=== PATIENT | female | born 1955 | race Caucasian/White ===

== ENCOUNTER 2017-06-22 09:02 | Emergency (ER) | payer MEDICARE, OTHER ==
[~2017-06-22] VITALS: Ht 152.4 cm; Wt 105.7 kg
[~2017-06-22 09:02] MED LIST: ARIP30TA3 PO; CLON0.5T PO; FLUO20CA36 PO; PANT40TA4 PO; VENL75CA56 PO
[2017-06-22 09:13] VITALS: BP 149/91
--- NOTE | 2017-06-22 09:15 | NUR ---
BRIGHT RED BLOOD ON TOILET SEAT (NOT ON STOOL) DURING BM X 3 DAYS. RR IS EVEN AND UNLABORED WITH NAD NOTED. SKIN IS WARM AND DRY. DR WARREN AT BS FOR EVAL.
== END 2017-06-22 10:02 | disposition home or self-care (01) ==
LOC: ER 09:05
DX: K62.5 Hemorrhage of anus and rectum (principal); K64.4 Residual hemorrhoidal skin tags; E11.9 Type 2 diabetes mellitus without complications; F43.10 Post-traumatic stress disorder, unspecified; F31.9 Bipolar disorder, unspecified; G47.30 Sleep apnea, unspecified; K21.9 Gastro-esophageal reflux disease without esophagitis; Z88.1 Allergy status to other antibiotic agents; Z60.2 Problems related to living alone
CPT/HCPCS: A4606; Z7610

== ENCOUNTER 2018-05-19 00:21 | Emergency (ER) | payer MEDICARE, MEDICAID ==
[~2018-05-19] VITALS: Ht 152.4 cm; Wt 99.8 kg
[2018-05-19 01:11] VITALS: BP 149/78
--- NOTE | 2018-05-19 01:25 | NUR ---
URINE SPECIMAN OBTAINED AND SENT TO THE LAB.
[2018-05-19 01:41] LABS: APPEARANCE,URINE CLEAR (CLEAR); BILIRUBIN,URINE NEGATIVE (NEGATIVE); BLOOD, URINE 1+ Ery/uL (NEGATIVE); COLOR,URINE YELLOW (YELLOW); KETONES,URINE NEGATIVE (NEGATIVE); LEUKOCYTE ESTERASE ,URINE NEGATIVE (NEGATIVE); NITRITE, URINE NEGATIVE (NEGATIVE); PROTEIN,URINE NEGATIVE (NEGATIVE); UGLUCOSE 3+ mg/dL (NEGATIVE); UROBILINOGEN,URINE 0.2 EU/dL (0.2)
[2018-05-19 01:57] LABS: BACTERIA,URINE Few /HPF (None Seen); RBC,URINE 0-2 /HPF (0-2); SQUAMOUS EPITHELIAL CELL,UR Few /HPF (None Seen); WBC,URINE 0-2 /HPF (0-3)
[2018-05-19] MEDS ORDERED: IBUPROFEN 600 MG TABLET PO ONE ×2 (02:07→02:30)
== END 2018-05-19 03:02 | disposition home or self-care (01) ==
LOC: ER 00:29
DX: R10.9 Unspecified abdominal pain (principal); I10 Essential (primary) hypertension; E11.9 Type 2 diabetes mellitus without complications; G47.30 Sleep apnea, unspecified; K21.9 Gastro-esophageal reflux disease without esophagitis; F31.9 Bipolar disorder, unspecified; F43.10 Post-traumatic stress disorder, unspecified; E66.9 Obesity, unspecified; Z98.51 Tubal ligation status; Z88.1 Allergy status to other antibiotic agents; Z88.2 Allergy status to sulfonamides; Z60.2 Problems related to living alone
CPT/HCPCS: 81000-TC; 87086-TC

== ENCOUNTER 2018-05-29 17:43 | Emergency (ER) | payer MEDICARE, MEDICAID ==
[~2018-05-29] VITALS: Ht 152.4 cm; Wt 102.1 kg
--- NOTE | 2018-05-29 18:19 | NUR ---
patient presented to the ER c/o painful urination. On room air, breathing evenly and unlabored. Connected to the monitor and pulse ox. Kept comfortable,, will continue to monitor.
[2018-05-29 18:32] LABS: APPEARANCE,URINE Cloudy (CLEAR); BILIRUBIN,URINE Negative (NEGATIVE); BLOOD, URINE Large Ery/uL (NEGATIVE); COLOR,URINE Brown (YELLOW); KETONES,URINE 15 (NEGATIVE); LEUKOCYTE ESTERASE ,URINE Small (NEGATIVE); NITRITE, URINE Negative (NEGATIVE); PH,URINE 5.5 (5.0-8.0); PROTEIN,URINE 100 mg/dl (NEGATIVE); UGLUCOSE 500 MG/DL mg/dL (NEGATIVE); UROBILINOGEN,URINE 0.2 EU/dL (0.2)
[2018-05-29 18:50] LABS: BACTERIA,URINE Few /HPF (None Seen); MUCUS,URINE Few /LPF (None Seen); RBC,URINE TOO NUMEROUS TO COUN /HPF (0-2); SQUAMOUS EPITHELIAL CELL,UR Few /HPF (None Seen); URINE AMORPHOUS URATE Few /HPF (None Seen)
--- NOTE | 2018-05-29 19:00 | NUR ---
Report received from Darshan GALEAS for [facility].
--- NOTE | 2018-05-29 19:14 | NUR ---
Марина perales in ED - 05/29/18 at 1914 by [email or web address] Patient discharged to home in stable condition. Written and verbal after care instructions given. Patient verbalizes understanding of instruction. Pt ambulatory with steady gait.
[2018-05-29 19:15] VITALS: BP 142/88
--- NOTE | 2018-05-29 19:15 | NUR ---
Patient discharged to home in stable condition. Written and verbal after care instructions given. Patient verbalizes understanding of instruction. Pt ambulatory with steady gait.
== END 2018-05-29 19:19 | disposition home or self-care (01) ==
LOC: ER 17:44
DX: N39.0 Urinary tract infection, site not specified (principal); E11.9 Type 2 diabetes mellitus without complications; K21.9 Gastro-esophageal reflux disease without esophagitis; F31.9 Bipolar disorder, unspecified; G47.30 Sleep apnea, unspecified; F43.10 Post-traumatic stress disorder, unspecified; Z98.890 Other specified postprocedural states; Z88.1 Allergy status to other antibiotic agents; Z88.2 Allergy status to sulfonamides; Z60.2 Problems related to living alone; Z79.899 Other long term (current) drug therapy
CPT/HCPCS: 81000-TC; 87086-TC; 87186-TC

== ENCOUNTER 2024-07-20 13:45 | Emergency (ER) | payer MEDICARE, OTHER ==
[~2024-07-20] VITALS: Ht 157.5 cm; Wt 93.0 kg
[~2024-07-20 13:45] MED LIST changes: -PANT40TA4 PO; +PANT40TA49 PO
[2024-07-20] MEDS ORDERED: IBUP-1490 PO (15:15)
[2024-07-20 15:51] VITALS: BP 146/80; TEMP 98.1; O2SAT 98
== END 2024-07-20 15:52 | disposition home or self-care (01) ==
LOC: ER 13:45
DX: M72.2 Plantar fascial fibromatosis (principal); I10 Essential (primary) hypertension; E11.9 Type 2 diabetes mellitus without complications; Z79.899 Other long term (current) drug therapy; Z88.1 Allergy status to other antibiotic agents; Z88.2 Allergy status to sulfonamides

== ENCOUNTER 2024-11-27 09:34 | Outpatient (CLI) | payer MEDICARE, OTHER ==
[~2024-11-27 09:34] MED LIST changes: +IBUP-1490 PO
== END 2024-11-27 23:59 | disposition home or self-care (01) ==
LOC: WOU 09:34
PROVIDERS: ATTEND Student in an Organized Health Care Education/Training Program
DX: M76.61 Achilles tendinitis, right leg (principal); E11.40 Type 2 diabetes mellitus with diabetic neuropathy, unspecified; M72.2 Plantar fascial fibromatosis; B35.1 Tinea unguium; M79.671 Pain in right foot; Z79.84 Long term (current) use of oral hypoglycemic drugs

== ENCOUNTER 2024-12-11 11:58 | Emergency (ER) | payer MEDICARE, OTHER ==
[~2024-12-11] VITALS: Ht 152.4 cm; Wt 93.0 kg
[2024-12-11 12:04] VITALS: BP 166/98; TEMP 98.4; O2SAT 98
[2024-12-11] MEDS ORDERED: CLIN300C12 PO (12:22)
== END 2024-12-11 12:31 | disposition home or self-care (01) ==
LOC: ER 12:05
DX: L03.012 Cellulitis of left finger (principal); I10 Essential (primary) hypertension; E11.9 Type 2 diabetes mellitus without complications; Z79.899 Other long term (current) drug therapy; Z88.1 Allergy status to other antibiotic agents; Z88.2 Allergy status to sulfonamides